=== PATIENT | male | born 1945 | race Caucasian/White ===

== ENCOUNTER 2017-01-27 06:05 | Inpatient (IN) | payer MEDICARE ==
[~2017-01-27 06:05] MED LIST: Buffered Lidocaine 0.9% SYRIN* 5 ML/SYR SYRINGE INTRADERM ONE; Gabapentin CAP(*) 400 MG PO ONE; Sodium Citrate/Citric Acid* 15 ML UDC PO ONE; celeCOXIB CAP* 200 MG PO ONE
[2017-01-27] MEDS ORDERED: celeCOXIB CAP* 100 MG ONE (06:17)
[2017-01-27] MEDS ORDERED: Sodium Citrate/Citric Acid* 15 ML UDC ONE (06:18)
[2017-01-27] MEDS ORDERED: Gabapentin CAP(*) 300 MG ONE (06:18)
[2017-01-27] MEDS ORDERED: Buffered Lidocaine 0.9% SYRIN* 5 ML/SYR SYRINGE ONE (06:18)
[2017-01-27] MEDS ORDERED: ceFAZolin 2 GM PREMIX(*) 2 GM/50 ML BAG IVPB ONE (06:18)
[2017-01-27] MEDS ORDERED: Bupivacaine 0.25% EPI 200,000* 30 ML SDV ONE (07:05)
[2017-01-27] MEDS ORDERED: fentaNYL* 50 MCG/ML 2 ML VIAL (100 MCG VIAL) ONE ×2 (07:32→07:33)
[2017-01-27] MEDS ORDERED: Sodium Bicarbonate 8.4% SYR* 10 ML SYRINGE ONE (07:33)
[2017-01-27] MEDS ORDERED: Lidocaine 2% EPI 1:200000 MPF* 20 ML VIAL ONE (07:33)
[2017-01-27] MEDS ORDERED: Midazolam* 1 MG/ML 5 ML VIAL (5 MG) ONE (07:33)
[2017-01-27] MEDS ORDERED: Lactated Ringers 500 ml BAG* 500 ML IV PRN (08:28)
[2017-01-27] MEDS ORDERED: EPHEDrine (Pressors)* 50 MG/ML VIAL IV PUSH PRN (08:28)
[2017-01-27] MEDS ORDERED: Acetaminophen IV 1GM/100ML * 10 MG/ML VIAL IVPB ONE (08:33)
[2017-01-27] MEDS ORDERED: DiMENhydriNATE IV* 50 MG/ML VIAL IV PUSH PRN (08:33)
[2017-01-27] MEDS ORDERED: fentaNYL* 50 MCG/ML 2 ML VIAL (100 MCG VIAL) IV PRN (08:33)
[2017-01-27] MEDS ORDERED: Ondansetron INJ* 2 MG/ML VIAL IV PRN ×2 (08:33→10:00)
[2017-01-27] MEDS ORDERED: Ropivacaine 0.2% EPIDURAL* 200 MG/100 ML BAG EPIDURAL SCH (09:00)
[2017-01-27] MEDS ORDERED: Ropivacaine 0.2% EPIDURAL* 200 MG/100 ML BAG EPIDURAL ONE (09:14)
[2017-01-27] MEDS ORDERED: Acetaminophen IV 1GM/100ML * 100 ML ONE (09:39)
[2017-01-27] MEDS ORDERED: Acetaminophen TAB* 325 MG PO PRN (10:00)
[2017-01-27] MEDS ORDERED: Bisacodyl SUPP* 10 MG SUPP PR PRN (10:00)
[2017-01-27] MEDS ORDERED: oxyCODONE/Acetamin 5/325 MG* TAB PO PRN (10:00)
[2017-01-27] MEDS ORDERED: diPHENhydraMINE IV* 50 MG/ML 1 ml VIAL (BENADRYL) IV PRN (10:00)
[2017-01-27] MEDS ORDERED: Morphine INJ* 2 MG/ML 1 ML SYRINGE IV PRN (10:00)
[2017-01-27] MEDS ORDERED: Magnesium Hydroxide LIQ* 30 ML UDC PO PRN (10:00)
[2017-01-27] MEDS ORDERED: oxyCODONE TAB* 5 MG TAB PO PRN (10:00)
--- NOTE | 2017-01-27 11:32 | RAD ---
Indication: Right knee replacement. 2 views of the right knee demonstrates bipolar knee arthroplasty in satisfactory position. No definite periprostatic fracture is noted. IMPRESSION: Bipolar knee arthroplasty in satisfactory position.
--- NOTE | 2017-01-27 13:06 | OP ---
DATE OF OPERATION: 01/27/17 - ROOM #341 DATE OF : 41 ATTENDING SURGEON: Meño Calvillo MD GR[employer]DSKEEPING MAINTENANCE WORKER: MAXIMILIAN Rojas ANESTHESIOLOGIST: Meño Herndon MD ANESTHESIA: Epidural and sedation. PRE-OP DIAGNOSIS: Osteoarthritis, right knee. POST-OP DIAGNOSIS: Osteoarthritis, right knee. OPERATIVE PROCEDURE: Right total knee arthroplasty. ESTIMATED BLOOD LOSS: Less than 50 cc. COMPLICATIONS: None. HARDWARE: Rosenda Persona #9 femur, G tibia, 11 mm polyethylene, 39 mm all polyethylene patellar button. INDICATIONS: Mr. López is a 71-year-old male with continued complaints of bilateral knee pain. He had been treated conservatively initially elsewhere with physical therapy, anti-inflammatories, and various injections including both visco-supplementation as well as steroids. While each had given him good short-term relief, he has still continued complaints of knee pain. I discussed with him that his x-rays look like he had mostly just medial compartment wear and that he might be a candidate for a medial compartment arthroplasty. He, therefore, had undergone a knee arthroscopy which found significant wear in the patellofemoral as well as damage in the lateral compartments. Therefore, I thought a total knee arthroplasty will be more appropriate than a unicondylar knee replacement. Risks of surgery such as infection, scar formation, stiffness , DVT, pulmonary embolism, hardware failure, and continued pain were some of the risks discussed. He had been declared medically optimized and wished to proceed. DESCRIPTION OF PROCEDURE: The patient was brought to the OR and epidural anesthesia was introduced. Flower catheter was placed. Tourniquet was placed over the proximal right thigh and was used during the case. Total tourniquet time would be 61 minutes. Right knee was prepped and then draped. Esmarch was used to exsanguinate the leg and the tourniquet was raised. Midline incision was made centered about the patella and was carried down to the skin and subcutaneous tissues. Extensor mechanism was nicely exposed and a sharp parapatellar arthrotomy was made. Quite a bit of clear yellowish joint fluid was encountered. Soft tissues were sharply elevated from the medial side of the tibia and the fat pad was sharply excised. Patella measured 28 mm in thickness and a nice 10 mm cut was taken. Patella was then easily subluxated laterally and the knee was flexed up. Nice exposure of the distal femur was obtained. Step drill was used to open the femoral canal and an intramedullary guide was placed. This had been set at 4 degrees. Guide was adjusted until it was parallel with the posterior condyles and then pinned into place. Distal femoral cutting guide was pinned into place and the intramedullary guide was removed. Distal femoral cut was taken and it appeared a nice cut was obtained. Femur was sized and it sat nicely for a 9. A 9 block was placed but with the superior drill hole, I did not come out on top side of the femur and this was moved up by 2 mm. This seemed to sit better, as with drilling I now came out on the top side of the anterior femoral cortex. Anterior and posterior femoral cuts followed by the chamfer cut were taken. Attention was then turned to the tibia. Step drill was used to open the tibial canal and the intramedullary guide was placed. Outrigger was assembled and adjusted until it appeared it would take 2 mm from the worn medial side. Cutting guide was then pinned into place and the proximal tibial cut was taken. I still had a little bit of the medial cortex where I did not cut as he had quite a bit of bone loss from the medial side of the tibia. He was sized with a 10 spacer block and he came out nicely into full extension, had good stability and similarly with flexion was nice and parallel as well. Because of the bone loss on that medial side, I thought an additional 2-mm cut would smooth this out and that was than taken. Nice cut was obtained. Tibia sized nicely for G and a size G was then pinned into place. Proximal tibia was drilled and then punched. 9 was placed on the femur and the notch cut was taken and stud holes were drilled. A 10 trial polyethylene was then placed and it was a little bit loose and the 12 felt a little bit tight. With an 11, he came out nicely in a full extension, had good stability to varus and valgus stress, and flexed back past 135 degrees without the polyethylene levering out. Patella tracking was also fine. Patella sized nicely at a 38 and holes were drilled and trial was snapped into place. Patella tracking was still perfect. Trial instrumentation was removed. The knee was copiously pulse lavaged. Cement was being prepared. Tibia followed by femur and patella were all cemented into place. Excess cement was removed and the cement was allowed to harden. Once the cement had hardened, the knee was searched for small pieces of cement and several small pieces were found. Knee was again copiously pulse lavaged. He was again trialed with the 11 and had the same wonderful motion and stability. Knee was again pulse lavaged and the 11 was then snapped into place. Knee was again pulse lavaged and the parapatellar arthrotomy was repaired using interrupted #1 Vicryl sutures. Tourniquet was let down, and no significant bleeding was encountered. Subcutaneous tissues were reapproximated using 2-0 Vicryl. Skin was closed using ha. Sterile dressing and a Cryo/Cuff were applied in the OR. The patient was awakened stable and transferred to the recovery room. [id number]/GABRIEL #: [id number] MARY
[2017-01-27] MEDS ORDERED: ceFAZolin VIAL(*) 1 GM in NS 0.9% 50 ML* 50 ML IVPB SCH (14:00)
[2017-01-27] MEDS ORDERED: Warfarin TAB(*) 10 MG PO ONE (17:00)
[2017-01-27] MEDS: Docusate CAP* 100 MG PO SCH (19:56)
[2017-01-27] MEDS: ceFAZolin VIAL(*) 1 GM in NS 0.9% 50 ML* 50 ML IVPB SCH (21:57)
[2017-01-28] MEDS: oxyCODONE/Acetamin 5/325 MG* TAB PO PRN ×5 (05:33→21:15)
[2017-01-28] MEDS: ceFAZolin VIAL(*) 1 GM in NS 0.9% 50 ML* 50 ML IVPB SCH (05:34)
[2017-01-28 06:21] LABS: Hematocrit 36 % (42-52); Hemoglobin 12.4 g/dl (14.0-18.0)
[2017-01-28 06:38] LABS: BUN/Creatinine Ratio 12.9 (8-20); Calcium 8.5 mg/dL (8.6-10.3); EGFR African American 93.1 (>60); EGFR Non-African American 72.4 (>60); Potassium 4.5 mmol/L (3.5-5.0)
[2017-01-28] MEDS: Lisinopril TAB* 10 MG PO SCH (08:01)
[2017-01-28] MEDS: Docusate CAP* 100 MG PO SCH ×2 (08:01→21:11)
[2017-01-28] MEDS: Vitamin THERAPEUTIC TAB PO SCH (08:01)
[2017-01-28] MEDS ORDERED: Ketorolac INJ* 15 MG/ML 1 ML VIAL IV PUSH PRN (09:09)
--- NOTE | 2017-01-28 09:09 | PN ---
Progress Note - Progress Note SOAP: Subjective: []Patient seen OOb in chair. Complains of moderate right knee pain now that the block has worn off. Denies SOB, CP, dizziness. Hopes to go home in 1-2 days. Objective: [] Vital Signs Temp 98.8 F 01/28/17 07:20 Pulse 75 01/28/17 07:20 Resp 18 01/28/17 09:03 BP 125/69 01/28/17 07:20 Pulse Ox 95 01/28/17 08:00 Intake & Output 01/27/17 01/28/17 01/28/17 18:59 06:59 18:59 Intake Total 2931 2490 320 Output Total 750 2425 Balance 2181 65 320 Weight 213 lb 6.4 oz Intake: IV Fluids 2050 1040 ABX - CEFAZOLIN 55 LR 1000 985 NS 1000 NS 50ML, Cefazolin 2G 50 IVPB 561 ABX - CEFTRIAXONE 54 LR 507 Oral 320 1450 320 Output: Urine 125 Flower 550 2300 Estimated Blood Loss 200 Other: # Bowel Movements 0 Laboratory Results - last 24 hr 01/28/17 01/28/17 01/28/17 05:49 05:49 05:49 Hgb 12.4 L Hct 36 L INR (Anticoag Therapy) 1.26 H Sodium 134 Potassium 4.5 Chloride 103 Carbon Dioxide 25 Anion Gap 6 BUN 13 Creatinine 1.01 Est GFR ( Amer) 93.1 Est GFR (Non-Af Amer) 72.4 BUN/Creatinine Ratio 12.9 Glucose 113 H Calcium 8.5 L Right knee ROJELIO is dry and intact calf non tender and soft +DF/PF right ankle sensation intact distally Assessment: []s/p right total knee arthroplasty POD #1 Plan: []PT OT WBAT RLE Add Toradol prn pain Coumadin w heparin bridge- 8mg today Home in 1 -2 days
[2017-01-28] MEDS: Heparin VIAL(*) 5000 UNITS/ML VIAL (FIVE THOUSAND) SUBCUT SCH ×2 (15:00→21:12)
[2017-01-28] MEDS ORDERED: Warfarin TAB(*) 4 MG PO ONE (17:00)
[2017-01-29] MEDS: oxyCODONE/Acetamin 5/325 MG* TAB PO PRN ×3 (03:40→11:38)
[2017-01-29] MEDS: Heparin VIAL(*) 5000 UNITS/ML VIAL (FIVE THOUSAND) SUBCUT SCH (05:48)
[2017-01-29 06:17] LABS: Hematocrit 34 % (42-52); Hemoglobin 11.3 g/dl (14.0-18.0)
[2017-01-29] MEDS: Docusate CAP* 100 MG PO SCH (09:09)
[2017-01-29] MEDS: Vitamin THERAPEUTIC TAB PO SCH (09:09)
[2017-01-29] MEDS: Lisinopril TAB* 10 MG PO SCH (09:09)
[2017-01-29 11:43] VITALS: BP 112/71
--- NOTE | 2017-01-29 18:19 | DS ---
DISCHARGE SUMMARY: DATE OF ADMISSION: 01/27/17 DATE OF DISCHARGE: 01/29/17 ATTENDING PHYSICIAN: Dr. Meño Calvillo (DICTATED BY MAXIMILIAN GOODMAN) ADMISSION DIAGNOSIS: Osteoarthritis, right knee. DISCHARGE DIAGNOSIS: Osteoarthritis, right knee. SURGERY PERFORMED: Right total knee arthroplasty. HOSPITAL COURSE: The patient is a 71-year-old male with continued complaints of right knee pain. The patient failed conservative management including physical therapy, anti-inflammatories, steroid injections and viscosupplementation injections. He only got short-term relief with these modalities and underwent a knee arthroscopy which revealed significant patellofemoral wear as well as damage in the medial and lateral compartments. It was felt he would benefit from a total knee arthroplasty. The patient elected to proceed and was taken to the operating room under the care of Dr. Meño Calvillo on the date of 01/27/17. He tolerated the procedure well, left the operating room in stable condition. Postoperatively he progressed very well with physical therapy and occupational therapy goals and had no postoperative complications. He was therapeutic on his Coumadin postoperative day #2 with an INR of 3.01. He was found medically and orthopedically stable for discharge to home on the date of 01/29/17. CONDITION ON DISCHARGE: He is afebrile. His vital signs are stable. His right knee incision is healing without evidence of infection. His calf is nontender and soft. His neurovascular status is grossly intact. PLAN: Discharge to home, 01/29/17. He will take no Coumadin, 01/29/17. He will have an INR blood draw by S , 01/30/17, with Coumadin dosages to follow from the office. He will continue with his physical therapy exercises, bearing weight as tolerated on the right lower extremity. Should he develop increased knee pain, swelling, drainage, redness, calf pain or swelling, shortness of breath, chest pain, the office will be contacted prior to a scheduled followup with Dr. Calvillo in roughly 3 to 4 weeks. He will continue with Percocet and Colace as well. All prescriptions were sent to his pharmacy. MAXIMILIAN GOODMAN [id number]/[facility] #: [id number] MARY
== END 2017-01-29 15:15 | disposition home health service (06) | DRG 470 ==
LOC: AA 06:05 → SSU 11:34
PROVIDERS: ADMIT Orthopaedic Surgery; ATTEND Orthopaedic Surgery
PROC: 0SRC0J9 Replacement of Right Knee Joint with Synthetic Substitute, Cemented, Open Approach (ICD-10-PCS; principal; 2017-01-27 07:30)
DX: M17.0 Bilateral primary osteoarthritis of knee (principal); I10 Essential (primary) hypertension; F17.210 Nicotine dependence, cigarettes, uncomplicated; E78.5 Hyperlipidemia, unspecified
CPT/HCPCS: 36415; 80048; 85014; 85018; 85610; 88305; 88311; 94760; A9270-GY; C1776; J0690; J1644; J1885; J2250; J2795; J3010

== ENCOUNTER 2018-12-15 11:14 | Emergency (ER) | payer MEDICARE ==
[2018-12-15] MEDS ORDERED: fentaNYL* 50 MCG/ML 2 ML VIAL (100 MCG VIAL) IV SLOW PU ONE ×3 (11:21→12:27)
[2018-12-15] MEDS ORDERED: Ondansetron INJ* 2 MG/ML VIAL IV ONE (11:22)
[2018-12-15] MEDS ORDERED: NS 0.9% 1000 ML** 1,000 ML IV ONE (11:22)
[2018-12-15 11:46] LABS: ABS Basophils 0 10^3/ul (0-0.2); ABS Eosinophils 0.1 10^3/ul (0-0.6); ABS Lymphocytes 2.5 10^3/ul (1.0-4.8); ABS Monocytes 0.9 10^3/ul (0-0.8); ABS Neutrophils 4.9 10^3/ul (1.5-7.7); ABS Nucleated RBC 0 10^3/ul; Eosinophil % 1.5 %; Hematocrit 37 % (36-46); Hemoglobin 12.6 g/dL (14.0-18.0); Lymphocyte % 29.3 %; Mean Corpuscular HGB Conc 34 g/dL (31-36); Mean Corpuscular Hemoglobin 31 pg (27-31); Mean Corpuscular Volume 93 fL (80-94); Mean Platelet Volume 8.4 fL (7.4-10.4); Nucleated Red Blood Cells % 0.2; Platelet Count 253 10^3/uL (150-450); Red Blood Count 4.03 10^6 /uL (4.18-5.48); Red Cell Distribution Width 13 % (10.5-15); White Blood Count 8.4 10^3/uL (3.5-10.8)
[2018-12-15 12:09] LABS: Albumin/Globulin Ratio 1.3 (1-3); BUN/Creatinine Ratio 15.9 (8-20); Calcium 9.5 mg/dL (8.6-10.3); EGFR African American 76.5 (>60); EGFR Non-African American 63.3 (>60); Globulin 3.2 g/dL (2-4); Potassium 4.4 mmol/L (3.5-5.0); Total Bilirubin 0.3 mg/dL (0.2-1.0); Total Protein 7.2 g/dL (6.4-8.9)
[2018-12-15 12:10] LABS: Troponin I 0.02 ng/mL (<0.04)
[2018-12-15] MEDS ORDERED: Midazolam* 1 MG/ML 5 ML VIAL (5 MG) SLOW PUSH ONE ×2 (12:27)
[2018-12-15] MEDS ORDERED: Naloxone* 0.4 MG/ML 10 ML VIAL ONE (12:36)
[2018-12-15] MEDS ORDERED: Flumazenil* 0.1 MG/ML 5 ML MDV ONE (12:36)
--- NOTE | 2018-12-15 13:40 | ED ---
Progress - Progress Note Progress Note: I supervised the PA and performed a history and physical exam. Patient is a 73 y /o male who presents to the ED c/o right shoulder dislocation. He has a prior hx of anterior right shoulder dislocation. Patient was seen at [facility] and was given morphine and fentanyl without relief. On examination, patients right shoulder was inferior anteriorly dislocated with his arm displaced superiorly above his head. NV intact distally. Lungs clear, abdomen normal, heart regular rate and rhythm. Mallampati class 1. EKG at 11:35: Normal sinus rhythm at 67 bpm, normal MN, prolonged QRS, normal QTc, normal axis, normal ST, normal T-waves, non-specific EKG. Assessment: right shoulder dislocation Plan: right shoulder reduction with conscious sedation Reduction procedure: Timeout performed prior to procedure. 100 mcg Fentanyl and 100 mg Versed given, the patient continued having pain. Another 50 mcg Fentanyl given. Stable vital signs. Performed reduction successfully. Subsequent to reduction he had apneic episodes with a drop in his oxygenation. Therefore, 0.2 mg Narcan administered. Patient woke without problems and stated he felt fine. Post-reduction XR was done and confirmed successful reduction. Re-Evaluation - Re-Evaluation First Eval Re-Evaluation Time: 13:40 Change: Improved Comment: Pt feels much better. Course/Dx - Course Course Of Treatment: I supervised the PA and performed a history and physical exam. Patient is a 73 y/o male who presents to the ED c/o right shoulder dislocation. Performed successful right shoulder reduction, confirmed by XR. Patients final dx is right shoulder reduction and he will be discharged. He is agreeable with this plan. - Diagnoses Provider Diagnoses: Dislocation of right shoulder joint Discharge - Sign-Out/Discharge Documenting (check all that apply): Patient Departure - Discharge Patient Received Moderate/Deep Sedation with Procedure: Yes - Discharge Plan Condition: Improved Disposition: HOME Patient Education Materials: Shoulder Dislocation (ED) Referrals: Richard Brown MD [Medical Doctor] - Reginald Sánchez MD [Primary Care Provider] - Additional Instructions: Please follow-up with Dr. Vivar this week Call for an appointment tomorrow morning You may take Tylenol or ibuprofen for any discomfort Keep the arm in the sling at all times Gentle pendular motion exercises should be performed during the immobilization period to reduce the risk of frozen shoulder. - Attestation Statements Document Initiated by Scribe: Yes Documenting Scribe: Soledad Monzon Provider For Whom Scribe is Documenting (Include Credential): Tessie Jerez MD Scribe Attestation: Soledad No, scribed for Tessie Campos MD on 12/15/18 at 1502.
--- NOTE | 2018-12-15 13:44 | ED ---
Upper Extremity Pain - HPI Summary HPI Summary: Patient is a 73-year-old male who presents to the ED from [facility] with a dislocation of the right shoulder. [facility] provider was able to call orthopedist, Dr. Brown who suggested he come to the ED. Patient states he was reaching up to grab apple from [place] when he heard a "pop" and immediately felt pain to the right shoulder. He was then unable to move the shoulder. He arrives to the ED after having morphine with no improvement of his symptoms. They did not attempt to reduce the shoulder at [facility]. He has had one episode of a shoulder dislocation in the past which was an anterior shoulder dislocation to the right. He states he was out for about 5 hours and it was able to be reduced in the ED without sedation. - History of Current Complaint Chief Complaint: EDExtremityUpper Stated Complaint: DISLOCATED SHOULDER PER Time Seen by Provider: 12/15/18 11:16 Hx Obtained From: Patient Mechanism Of Injury: Twisted Onset/Duration: Started Hours Ago Timing: Constant Severity Initially: Moderate Severity Currently: Moderate Pain Location: Shoulder Character: Aching Aggravating Factor(s): Movement, Lifting, Flexion, Extension Alleviating Factor(s): Nothing Associated Signs & Symptoms: Positive: Negative - Risk Factors Non-Orthopedic Risk Factor: Negative DVT Risk Factors: Negative Septic Arthritis Risk Factor: Negative Compartment Syndrome Risk Factors: Pain - Allergies/Home Medications Allergies/Adverse Reactions: Allergies Allergy/AdvReac Type Severity Reaction Status Date / Time No Known Allergies Allergy Verified 01/27/17 06:29 PMH/Surg Hx/FS Hx/Imm Hx Previously Healthy: Yes Cardiovascular History: Reports: Hx Hypertension, Hx Valvular Heart Disease - mitral regurgitation, mild, Other Cardiovascular Problems/Disorders - high cholesterol Musculoskeletal History: Reports: Hx Arthritis - osteoarthritis in knees Sensory History: Reports: Hx Cataracts - in eyes, Hx Contacts or Glasses Denies: Hx Hearing Aid Opthamlomology History: Reports: Hx Cataracts - in eyes, Hx Contacts or Glasses - Surgical History Surgery Procedure, Year, and Place: arthroscopic both knees 11/2016. bilat inquinal hernia repair 40 years ago Hx Anesthesia Reactions: No - Immunization History Hx Pertussis Vaccination: No Immunizations Up to Date: Yes Infectious Disease History: No Infectious Disease History: Denies: Traveled Outside the [place] in Last 30 Days - Social History Occupation: Unemployed Lives: With Family Alcohol Use: Rare Hx Substance Use: No Substance Use Type: Reports: None Hx Tobacco Use: Yes Smoking Status (MU): Heavy Every Day Tobacco Smoker Type: Cigars Amount Used/How Often: smoked cigars 5ppd smoked 10 years Review of Systems Constitutional: Negative Negative: Fever, Chills, Fatigue, Skin Diaphoresis Negative: Palpitations, Chest Pain Negative: Shortness Of Breath, Cough Genitourinary: Negative Positive: no symptoms reported, see HPI Positive: Arthralgia - right shoulder. Negative: Myalgia Skin: Negative Neurological: Negative All Other Systems Reviewed And Are Negative: Yes Physical Exam Triage Information Reviewed: Yes Vital Signs On Initial Exam: Initial Vitals Temp Pulse Resp BP Pulse Ox 97.8 F 86 20 145/80 96 12/15/18 11:14 12/15/18 11:14 12/15/18 11:14 12/15/18 11:14 12/15/18 11:14 Vital Signs Reviewed: Yes Appearance: Positive: Well-Appearing, Well-Nourished Skin: Positive: Warm, Skin Color Reflects Adequate Perfusion Head/Face: Positive: Normal Head/Face Inspection Eyes: Positive: EOMI, Conjunctiva Clear Neck: Positive: Supple, No Lymphadenopathy Respiratory/Lung Sounds: Positive: Clear to Auscultation, Breath Sounds Present Cardiovascular: Positive: RRR, Pulses are Symmetrical in both Upper and Lower Extremities Musculoskeletal: Positive: Pain @ - Right shoulder Neurological: Positive: Speech Normal Psychiatric: Positive: Normal, Affect/Mood Appropriate AVPU Assessment: Alert Diagnostics - Vital Signs Vital Signs Temp Pulse Resp BP Pulse Ox 12/15/18 13:31 16 12/15/18 13:14 68 124/72 99 12/15/18 13:03 68 123/70 100 12/15/18 13:01 68 100 12/15/18 12:56 70 134/78 99 12/15/18 12:52 62 116/50 97 12/15/18 12:51 61 114/81 92 12/15/18 12:48 74 120/90 92 12/15/18 12:45 76 155/80 99 12/15/18 12:00 69 24 98 12/15/18 11:24 76 19 130/93 98 12/15/18 11:23 77 11 99 12/15/18 11:14 97.8 F 86 20 145/80 96 - Laboratory Lab Results: Lab Results 12/15/18 12/15/18 Range/Units 11:34 11:34 WBC 8.4 (3.5-10.8) 10^3/uL RBC 4.03 L (4.18-5.48) 10^6 /uL Hgb 12.6 L (14.0-18.0) g/dL Hct 37 (36-46) % MCV 93 (80-94) fL MCH 31 (27-31) pg MCHC 34 (31-36) g/dL RDW 13 (10.5-15) % Plt Count 253 (150-450) 10^3/uL MPV 8.4 (7.4-10.4) fL Neut % (Auto) 58.6 % Lymph % (Auto) 29.3 % [place] % (Auto) 10.2 % Eos % (Auto) 1.5 % Baso % (Auto) 0.4 % Absolute Neuts (auto) 4.9 (1.5-7.7) 10^3/ul Absolute Lymphs (auto) 2.5 (1.0-4.8) 10^3/ul Absolute Monos (auto) 0.9 H (0-0.8) 10^3/ul Absolute Eos (auto) 0.1 (0-0.6) 10^3/ul Absolute Basos (auto) 0 (0-0.2) 10^3/ul Absolute Nucleated RBC 0 10^3/ul Nucleated RBC % 0.2 Sodium 137 (135-145) mmol/L Potassium 4.4 (3.5-5.0) mmol/L Chloride 103 (101-111) mmol/L Carbon Dioxide 24 (22-32) mmol/L Anion Gap 10 (2-11) mmol/L BUN 18 (6-24) mg/dL Creatinine 1.13 (0.67-1.17) mg/dL Est GFR ( Amer) 76.5 (>60) Est GFR (Non-Af Amer) 63.3 (>60) BUN/Creatinine Ratio 15.9 (8-20) Glucose 109 H (70-100) mg/dL Calcium 9.5 (8.6-10.3) mg/dL Total Bilirubin 0.30 (0.2-1.0) mg/dL AST 34 (13-39) U/L ALT 42 (7-52) U/L Alkaline Phosphatase 52 (34-104) U/L Troponin I 0.02 (<0.04) ng/mL Total Protein 7.2 (6.4-8.9) g/dL Albumin 4.0 (3.2-5.2) g/dL Globulin 3.2 (2-4) g/dL Albumin/Globulin Ratio 1.3 (1-3) Result Diagrams: 12/15/18 11:34 12/15/18 11:34 Lab Statement: Any lab studies that have been ordered have been reviewed, and results considered in the medical decision making process. Course/Dx - Course Course Of Treatment: On arrival to the ED, the patient's shoulder is externally rotated and abducted. Labs are obtained including a chest x-ray. Using conscious sedation performed by Dr. Sexton with fentanyl and Versed, traction , counter traction with external rotation and re-creation of the injury with good effect of shoulder reduction. Postreduction x-ray shows Hill-Sachs deformity present on prior x-ray. Shoulder immobilizer placed. Follow-up given. He understands to follow up this week with orthopedic team. NV intact pre-and post reduction. Pulses +2 bilaterally to the radial. - Diagnoses Differential Diagnosis/HQI/PQRI: Positive: Fracture (Closed), Strain, Sprain Provider Diagnoses: Dislocation of right shoulder joint - Physician Notifications Discussed Care of Patient With: Richard Brown Discharge - Sign-Out/Discharge Documenting (check all that apply): Patient Departure Patient Received Moderate/Deep Sedation with Procedure: No - Discharge Plan Condition: Improved Disposition: HOME Patient Education Materials: Shoulder Dislocation (ED) Referrals: Richard Brown MD [Medical Doctor] - Reginald Sánchez MD [Primary Care Provider] - Additional Instructions: Please follow-up with Dr. Vivar this week Call for an appointment tomorrow morning You may take Tylenol or ibuprofen for any discomfort Keep the arm in the sling at all times Gentle pendular motion exercises should be performed during the immobilization period to reduce the risk of frozen shoulder. - Billing Disposition and Condition Condition: IMPROVED Disposition: Home
[2018-12-15 14:02] VITALS: BP 139/80
== END 2018-12-15 14:01 | disposition home or self-care (01) ==
LOC: ED 11:14
DX: S43.004A Unspecified dislocation of right shoulder joint, initial encounter (principal); I10 Essential (primary) hypertension; I34.0 Nonrheumatic mitral (valve) insufficiency; F17.290 Nicotine dependence, other tobacco product, uncomplicated; X50.9XXA Other and unspecified overexertion or strenuous movements or postures, initial encounter; Y92.9 Unspecified place or not applicable
CPT/HCPCS: 23650; 36415; 71046; 80053; 84484; 85025; 93005; 96361; 96374; 96375; 99284; J2250; J2310; J2405; J3010

== ENCOUNTER 2024-02-17 05:39 | Observation (INO) ==
[~2024-02-17 05:39] MED LIST changes: -Buffered Lidocaine 0.9% SYRIN* 5 ML/SYR SYRINGE INTRADERM ONE; -Gabapentin CAP(*) 400 MG PO ONE; +Metoclopramide 5 MG/ML VIAL (10 mg) IV PRN; +NS 0.45% 1000 ml BAG 1,000 ML IV SCH; +Naloxone 0.4 mg VIAL 0.4 mg/ml 1 ml VIAL IV PRN; +Ondansetron 4 mg VIAL 2 MG/ML 2 ml VIAL IV PRN; -Sodium Citrate/Citric Acid* 15 ML UDC PO ONE; -celeCOXIB CAP* 200 MG PO ONE; +fentaNYL 100 mcg/2 ml 50 MCG/ML VIAL IV PRN
[2024-02-17] MEDS ORDERED: ceFAZolin 2 GM PREMIX 2 GM/50 ML BAG ONE (06:21)
[2024-02-17] MEDS ORDERED: Ondansetron 4 mg VIAL 2 MG/ML 2 ml VIAL ONE (06:24)
[2024-02-17] MEDS ORDERED: Dexamethasone IV 4 MG/ML VIAL 1 ml VIAL ONE (06:24)
[2024-02-17] MEDS ORDERED: Midazolam 2 mg/2 ml VIAL 1 mg/ml 2 ml VIAL (2 mg) ONE (06:24)
[2024-02-17] MEDS ORDERED: fentaNYL 250 mcg/5 ml 50 MCG/ML 5 ml VIAL (250 MCG) ONE (06:24)
[2024-02-17 06:29] LABS: Rapid COVID-19 Molecular Undetected (Undetected)
[2024-02-17] MEDS ORDERED: Rocuronium 50 mg VIAL 10 mg/ml 5 ml VIAL (50 mg) ONE (06:32)
[2024-02-17] MEDS ORDERED: Propofol 10 MG/ML 20 ML BTL ONE ×2 (06:32→09:05)
[2024-02-17] MEDS ORDERED: Bupivacaine 0.5% PF 10 ML SDV VIAL INJ ONE (07:41)
[2024-02-17] MEDS ORDERED: Bupivacaine 0.25% SDV 30 ML ONE (07:43)
[2024-02-17] MEDS ORDERED: Tranexamic Acid 1,000 MG/10 ML SDV ONE (08:03)
[2024-02-17] MEDS ORDERED: Glycopyrrolate IV 0.2 MG/ML 1 ML VIAL ONE (08:12)
[2024-02-17] MEDS ORDERED: Phenylephrine IV 10 MG/ML 1 ml VIAL ONE (08:12)
[2024-02-17] MEDS ORDERED: Ondansetron ODT 4 mg TAB 4 MG TAB PO PRN (10:13)
[2024-02-17] MEDS ORDERED: Morphine 2 MG/ML SYRINGE IV PRN (10:13)
[2024-02-17] MEDS ORDERED: Magnesium Hydroxide LIQ 30 ML UDC PO PRN (10:13)
[2024-02-17] MEDS ORDERED: Lactulose 30 ml UDC PO PRN (10:13)
[2024-02-17] MEDS ORDERED: Calcium Carb (TUMS) 500 mg CHEW TAB PO PRN (10:13)
[2024-02-17] MEDS ORDERED: Ondansetron 4 mg VIAL 2 MG/ML 2 ml VIAL IV PRN (10:13)
[2024-02-17] MEDS ORDERED: ceFAZolin 2 GM in NS PREMIX 2 GM/100 ML BAG IVPB SCH (11:00)
[2024-02-17] MEDS: Lactated Ringers 1000 ml BAG 1,000 ML IV SCH ×2 (16:01→16:58)
[2024-02-17] MEDS: BUPIVACAINE **LIPOSOME/PF 13.3 MG/ML (266MG/ 20ML) VIAL (RESTRICTED) INFIL ONE (16:01)
[2024-02-17] MEDS: Buffered Lidocaine 1% SYRIN 1 ml INTRADERM ONE (16:19)
[2024-02-17] MEDS: Acetaminophen IV 1 GM/100ML 1,000 MG/100 ML BAG IV ONE (16:19)
[2024-02-17] MEDS: Scopolamine 1 mg/72hr PATCH TRANSDERM ONE (16:19)
[2024-02-17] MEDS: ceFAZolin 2 GM PREMIX 2 GM/50 ML BAG IV SCH (16:58)
[2024-02-17] MEDS: Magnesium Hydroxide LIQ 30 ML UDC PO SCH (21:11)
[2024-02-18 06:28] LABS: Hematocrit 35.5 % (38-53); Hemoglobin 11.7 g/dL (13.2-16.3); Mean Platelet Volume 7.8 fL (7.5-11.2); Platelet Count 213 10^3/uL (150-450)
[2024-02-18 07:10] LABS: Calcium 8.5 mg/dL (8.6-10.3); Creatinine, Serum 1.22 mg/dL (0.67-1.17); Potassium 4.8 mmol/L (3.5-5.0); eGFR CKD-EPI 59.9 (>60)
[2024-02-18] MEDS: Vitamin THERAPEUTIC TAB PO SCH (09:25)
[2024-02-18 13:59] VITALS: BP 146/72
[2024-02-18 15:36] LABS: Urine Appearance Clear; Urine Bilirubin Negative (Negative); Urine Blood 1+ (Negative); Urine Color Light-Yellow; Urine Glucose Negative (Negative); Urine Ketones Negative (Negative); Urine Nitrite Negative (Negative); Urine Protein Negative (Negative); Urine Specific Gravity 1.012 (1.002-1.030); Urine Urobilinogen Negative (Negative); Urine pH 5.5 (5.0-8.0)
[2024-02-18 15:40] LABS: Urine Bacteria Absent /HPF (Absent); Urine Red Blood Cell 1+(3-5/hpf) /HPF (0-Trace); Urine White Blood Cell Trace(0-5/hpf) /HPF (0-Trace)
== END 2024-02-18 15:10 | disposition home or self-care (01) ==
LOC: SSU 05:39 → OR 05:39
PROVIDERS: ADMIT Orthopaedic Surgery Sports Medicine; ATTEND Orthopaedic Surgery Sports Medicine